=== PATIENT | male | born 1940 | race Caucasian/White ===

== ENCOUNTER → 2017-11-14 | Outpatient (CLI) | payer OTHER ==
[~2017-11-14] MED LIST: LEXISCAN IV ONE
== END ==
LOC: RAD 08:19
PROVIDERS: ATTEND Internal Medicine Cardiovascular Disease
DX: I25.10 Atherosclerotic heart disease of native coronary artery without angina pectoris (principal); R06.02 Shortness of breath; R07.89 Other chest pain
CPT/HCPCS: 78452; 93017; A4222; A9502; J2785